=== PATIENT | female | born 1945 | race Two or more races ===

== ENCOUNTER 2016-09-02 14:22 | Emergency (ER) | payer OTHER ==
[~2016-09-02] VITALS: Ht 157.5 cm; Wt 76.2 kg
[2016-09-02 14:40] VITALS: BP 143/66
[2016-09-02] MEDS ORDERED: KETOROLAC TROMETH 30 MG/ML 1ML VIAL IM ONE (15:45)
== END 2016-09-02 16:28 | disposition home or self-care (01) ==
LOC: ER 14:22
DX: S83.92XA Sprain of unspecified site of left knee, initial encounter (principal); M16.0 Bilateral primary osteoarthritis of hip; I10 Essential (primary) hypertension; E11.9 Type 2 diabetes mellitus without complications; W20.8XXA Other cause of strike by thrown, projected or falling object, initial encounter; Y93.01 Activity, walking, marching and hiking; Y99.8 Other external cause status; Y92.59 Other trade areas as the place of occurrence of the external cause
CPT/HCPCS: 72170; 73562; 96372; 99284; J1885